=== PATIENT | female | born 1950 | race Caucasian/White ===

== ENCOUNTER → 2021-01-04 | Outpatient (CLI) | payer MEDICARE, OTHER ==
--- NOTE | 2021-01-04 11:53 | RAD ---
EXAM: Carotid Doppler sonogram. HISTORY: Paresthesia. Hypertension. Atherosclerosis. TECHNIQUE: Burns scale and color Doppler sonographic evaluation of the neck with spectral waveform darren lysis was performed and static images are submitted for review. FINDINGS: The peak systolic velocity within the right common carotid artery is 78 cm/sec. The peak sy stolic velocity within the right internal carotid artery is 63 cm/sec and the end diastolic velocity within the right internal carotid artery is 29 cm/sec. The right ICA/CCA ratio is 1.2. The peak systolic velocity within the left common carotid artery is 131 cm/sec. The peak systolic jun ocity within the left internal carotid artery is 58 cm/sec and the end diastolic velocity within the left internal carotid artery is 24 cm/sec. The left ICA/CCA ratio is less than 1.0. There is normal antegrade flow within both vertebral arteries. There is a left cervical chain lymph n ode measuring 1.2 cm in long axis. This demonstrates a thickened cortex and may be reactive in etiolo gy. No additional lymphadenopathy is seen. IMPRESSION: 1. No Doppler evidence of greater than 50 percent stenosis involving the internal carotid arteries. 2. 1.2 cm suspected reactive right cervical chain lymph node. PQRS Compliance Statement - Stenosis calculations for CT, MR and conventional angiography are based u etta measurement of the distal ICA diameter in accordance with the NASCET methodology. Stenosis calcu lations for carotid ultrasound studies are derived from validated velocity criteria which are known t o correlate with the NASCET methodology. Electronically signed by: Lizz Davise MD (01/04/2021 11:50 AM) [id number]
== END ==
LOC: US 10:49
PROVIDERS: ATTEND Specialist
DX: R20.2 Paresthesia of skin (principal); I10 Essential (primary) hypertension; Z87.891 Personal history of nicotine dependence
CPT/HCPCS: 93880

== ENCOUNTER → 2021-02-15 | Outpatient (CLI) | payer MEDICARE, OTHER ==
--- NOTE | 2021-02-15 11:47 | RAD ---
EXAM: Ultrasound neck soft tissues. HISTORY: Lymphadenopathy. COMPARISON: 01/04/2021. FINDINGS: Sonography of the neck soft tissues was performed at the sites of prior concern. A jugulodigastric lymph node on the right measures 1.6 x 1.3 x 1.0 cm, mildly increased from 1.4 x 1. 2 x 0.7 cm previously. A second smaller node just adjacent to it measures 7 x 6 mm and was not clearl y seen previously. Other small lymph nodes on the right have prominent fatty brooke and appear benign. IMPRESSION: 1. The right cervical lymph node of concern has increased in size slightly over the interval. Correla te for causes of reactive adenopathy. CT neck soft tissues with contrast could further evaluate if th e diagnosis remains unclear. This is amenable to ultrasound-guided percutaneous biopsy. Electronically signed by: Mann Brown MD (02/15/2021 11:45 AM) [id number]
== END ==
LOC: US 10:52
PROVIDERS: ATTEND Specialist
DX: R59.1 Generalized enlarged lymph nodes (principal)
CPT/HCPCS: 76536

== ENCOUNTER 2021-05-20 12:16 | Emergency (ER) | payer MEDICARE, OTHER ==
[~2021-05-20] VITALS: Ht 165.1 cm; Wt 68.1 kg
[2021-05-20 12:51] VITALS: BP 133/93
[2021-05-20] MEDS ORDERED: ALPRAZolam 0.5 MG TABLET PO ONE (14:30)
--- NOTE | 2021-05-20 14:31 | PHYS DOC ---
Past History Past Surgical History: Other General Adult EDM: Chief Complaint: HYPERTENSION HPI: HPI: Patient is a 70-year-old female who presents with concerns of high blood pressure. patient states "I checked my blood pressure at home and it was in the 160s and then I checked it at a friend's house and it was in the 170s". Patient has a history of hypertension and is currently taking lisinopril. Patient denies chest pain, shortness of breath. Patient states "I have been really anxious and stressed out over a alliance party I am trying to plan". Review of Systems: Review of Systems: Constitutional: Denies fever or chills Eyes: Denies change in visual acuity HENT: Denies nasal congestion or sore throat Respiratory: Denies cough or shortness of breath Cardiovascular: Denies chest pain or edema GI: Denies abdominal pain, nausea, vomiting, bloody stools or diarrhea : Denies dysuria Musculoskeletal: Denies back pain or joint pain Integument: Denies rash Neurologic: Denies headache, focal weakness or sensory changes Endocrine: Denies polyuria or polydipsia Lymphatic: Denies swollen glands Psychiatric: Denies depression or anxiety Current Medications: Current Meds: Current Medications Medications (Trade) Dose Ordered Sig/Nithya Start Time Stop Time Status Last Admin Dose Admin Alprazolam (Xanax) 0.5 mg 1X ONCE 05/20/21 14:30 05/20/21 14:31 UNV Physical Exam: PE: Constitutional: Well developed, well nourished, no acute distress, non-toxic appearance. [] HENT: Normocephalic, atraumatic, bilateral external ears normal, oropharynx moist, no oral exudates, nose normal. [] Eyes: PERRLA, EOMI, conjunctiva normal, no discharge. [] Neck: Normal range of motion, no tenderness, supple, no stridor. [] Cardiovascular:Heart rate regular rhythm, no murmur [] Lungs & Thorax: Bilateral breath sounds clear to auscultation [] Abdomen: Bowel sounds normal, soft, no tenderness, no masses, no pulsatile masses. [] Skin: Warm, dry, no erythema, no rash. [] Back: No tenderness, no CVA tenderness. [] Extremities: No tenderness, no cyanosis, no clubbing, ROM intact, no edema. [] Neurologic: Alert and oriented X 3, normal motor function, normal sensory function, no focal deficits noted. [] Psychologic: Affect normal, judgement normal, mood normal. [] Current Patient Data: Vital Signs: Vital Signs Date Time Temp Pulse Resp B/P (MAP) Pulse Ox O2 Delivery O2 Flow Rate FiO2 05/20/21 12:51 78 20 133/93 (106) 99 Room Air EKG: EKG: [] Sinus rhythm. Heart rate 61 bpm. Radiology/Procedures: Radiology/Procedures: [] Heart Score: C/O Chest Pain: No Risk Factors: Risk Factors: DM, Current or recent (<one month) smoker, HTN, HLP, family history of CAD, obesity. Risk Scores: Score 0 - 3: 2.5% MACE over next 6 weeks - Discharge Home Score 4 - 6: 20.3% MACE over next 6 weeks - Admit for Clinical Observation Score 7 - 10: 72.7% MACE over next 6 weeks - Early Invasive Strategies Course & Med Decision Making: Course & Med Decision Making Pertinent Labs and Imaging studies reviewed. (See chart for details) [] 7-year-old female presents with concerns about high blood pressure. Patient was ports that she has been checking her blood pressure the last couple of days and states that it has been elevated. Patient currently takes lisinopril at home for hypertension. Patient's blood pressures in the 130s on arrival. EKG ordered to rule out cardiac abnormalities. Explained to patient she needs to make a follow-up appointment with PCP. Advised patient to take her blood pressure cuff with her to the doctor to compare of the 2. Patient also reports that she is very anxious and stressed out. Patient's denying chest pain, shortness of breath, headache, dizziness. Patient has no symptoms. Patient states "I would have not known her blood pressure was elevated had she not checked it". Patient given 0.5 Xanax for her anxiety. Patient states that she will call her PCP Friday to make an appointment. Patient is hemodynamically stable upon disposition. Dragon Disclaimer: Dragon Disclaimer: This electronic medical record was generated, in whole or in part, using a voice recognition dictation system. Departure Departure: Impression: Primary Impression: Anxiety Disposition: HOME / SELF CARE / HOMELESS Condition: STABLE Referrals: SOFIA HICKS MD (PCP) Patient Instructions: Anxiety and Panic Attacks, [id number] Additional Instructions: You were seen in the emergency room for concerns about your blood pressure being elevated. On arrival your blood pressure was in the 130s and within normal limits. He denied all symptoms such as headache, chest pain, dizziness, shortness of breath. Did appear to be very anxious and stated that you were nervous and worried lately. You were given 1 Xanax while in the emergency room to help with anxiety symptoms,. Make sure that you make an appointment with your PCP and take your blood pressure cuff with you so that you can compare your machine with your PCP. Return to the emergency room if you have worsening symptoms or anything you are concerned about. Otherwise call your PCP tomorrow. EMERGENCY DEPARTMENT GENERAL DISCHARGE INSTRUCTIONS Thank you for coming to [facility] (ED) today and trusting us with you care. We trust that you had a positivie experience in our Emergency Department. If you wish to speak to the department management, you may call the director at [phone]. YOUR FOLLOW UP INSTRUCTIONS ARE FOLLOWS: 1. Do you have a private Doctor? If you do not have a private doctor, please ask for a resource list of physicians or clinics that may be able to assist you with follow up care. 2. The Emergency Physician has interpreted your x-rays. The X-Ray specialist will also review them. If there is a change in the findings, you will be notified in 48 hours when at all possible. 3. A lab test or culture has been done, your results will be reviewed and you will be notified if you need a change in treatment. ADDITIONAL INSTRUCTIONS AND INFORMATION: 1. Your care today has been supervised by a physician who is specially trained in emergency care. Many problems require more than one evaluation for a complete diagnosis and treatment. We recommend that you schedule your follow up appointment as recommended to ensure complete treatment of you illness or injury. If you are unable to obtain follow up care and continue to have a problem, or if your condition worsens, we recommend that you return to the ED. 2. We are not able to safely determine your condition over the phone nor are we able to give sound medical advice over the phone. For these safety reasons, if you call for medical advice we will ask you to come to the ED for further evaluation. 3. If you have any questions regarding these discharge instructions please call the ED at [phone]. SAFETY INFORMATION: In the interest of safety, wellness, and injury prevention; we encourage you to wear your sealbelt, if you smoke; quite smoking, and we encourage family to use a protective helmet for bicycling and other sporting events that present an increased risk for head injury. IF YOUR SYMPTOMS WORSEN OR NEW SYMPTOMS DEVELOP, OR YOU HAVE CONCERNS ABOUT YOUR CONDITION; OR IF YOUR CONDITION WORSENS WHILE YOU ARE WAITING FOR YOUR FOLLOW UP APPOINTMENT; EITHER CONTACT YOUR PRIMARY CARE DOCTOR, THE PHYSICIAN WHOSE NAME AND NUMBER YOU WERE GIVEN, OR RETURN TO THE ED IMMEDIATELY. CL FLORES APRN May 20, 2021 14:31
[2021-05-20] MEDS ORDERED: LORazepam 1 MG TABLET PO ONE (14:45)
[2021-05-20] MEDS ORDERED: ALPRAZolam 0.25 MG TABLET PO ONE (14:45)
--- NOTE | 2021-05-20 22:01 | EKG ---
[facility] [address] [place] [id number] Test Date: 2021-05-20 Test Time: 14:24:25 Pat Name: BORIS MATA Department: Room: Gender: F Ops Analyst: ROLANDO : 1950 Requested By: CL FLORES Order Number: [id number] Reading MD: Aftab Olson Measurements Intervals [place] Rate: 61 P: 5 MO: 190 QRS: -18 QRSD: 80 T: 31 QT: 398 QTc: 402 Interpretive Statements SINUS RHYTHM ATRIAL PREMATURE COMPLEX(ES) LEFTWARD AXIS Electronically Signed On 05-22-2021 13:23:56 CDT by Aftab Olson
== END 2021-05-20 14:39 | disposition home or self-care (01) ==
LOC: ER 12:19
DX: F41.9 Anxiety disorder, unspecified (principal); I10 Essential (primary) hypertension
CPT/HCPCS: 93005; 99283